=== PATIENT | female | born 1975 | race Caucasian/White ===

== ENCOUNTER 2017-07-26 18:58 | Emergency (ER) | payer BC ==
[~2017-07-26] VITALS: Ht 167.6 cm; Wt 93.0 kg
[~2017-07-26 18:58] MED LIST: CLX20 PO
[2017-07-26 19:09] VITALS: Ht 167.6 cm; Wt 93.0 kg
[2017-07-26] MEDS ORDERED: FENTANYL CITRATE INJ 50 MCG/1 ML 2 ML VIAL IV PRN (20:00)
[2017-07-26] MEDS ORDERED: KETOROLAC TROMETHAMINE 30 MG/ML VIAL IV STA (20:00)
[2017-07-26] MEDS ORDERED: SODIUM CHLORIDE 0.9% 1000ML 1,000 ML IV STA (20:00)
[2017-07-26] MEDS ORDERED: ONDANSETRON INJ 2 MG/ML 2 ML VIAL IV STA (20:00)
[2017-07-26 21:00] LABS: BASO % 0.2 %; BASO ABS # 0.03 K/uL (0-0.2); COMPLETE YES; EOS % 1.1 %; HEMATOCRIT 42.3 % (37-47); IG% 0.3 %; LYMPH % 16.9 %; MEAN CELL VOLUME 85.5 fL (80-100); MEAN CORPUSCULAR HEMOGLOBIN 27.5 pg (25-34); MEAN CORPUSCULAR HGB CONC 32.2 g/dl (32-36); MEAN PLATELET VOLUME 9.6 fL (7.4-10.4); MONO % 7.8 %; NEUT % 73.7 %; PLATELET COUNT 340 K/uL (130-400); RED BLOOD COUNT 4.95 M/uL (4.2-5.4); WHITE BLOOD COUNT 12.39 K/uL (4.8-10.8)
[2017-07-26] MEDS ORDERED: ROPI0.25 PO (21:08)
[2017-07-26] MEDS ORDERED: VORT1TAB3 PO (21:08)
[2017-07-26 21:11] LABS: URINE APPEARANCE TURBID (CLEAR); URINE BILIRUBIN NEG (NEG); URINE COLOR YELLOW; URINE EPITHELIAL CELL AUTO >30 /lpf (0-5); URINE NITRITE NEG (NEG); URINE PH 7.5 (4.5-7.5); URINE SPECIFIC GRAVITY 1.017 (1.000-1.030); UROBILINOGEN NEG (NEG); ZZUR CULT IF INDIC CLEAN CATCH NO
[2017-07-26 21:13] LABS: MANUAL MICROSCOPIC REQUIRED? NO; REVIEW REQ? NO
--- NOTE | 2017-07-26 21:16 | DIAGNOSTIC IMAGING REPORT ---
CHEST ONE VIEW PORTABLE CLINICAL HISTORY: Pain, radiating to the abdomen. COMPARISON STUDY: No previous studies for comparison. FINDINGS: The cardiac and mediastinal contours are normal. There is no evidence of focal pulmonary consolidation. There is no evidence of failure. No pleural effusions are visualized.[ No free intraperitoneal air is visualized. IMPRESSION: No active disease in the chest. Electronically signed by: Catracho Herrera M.D. 07/26/2017 9:14 PM Dictated Date/Time: 07/26/2017 9:14 PM
[2017-07-26 21:30] LABS: ALT/SGPT 20 U/L (12-78); BLOOD UREA NITROGEN 12 mg/dl (7-18); BUN/CREATININE RATIO 15.6 (10-20); CALCIUM 9.9 mg/dl (8.5-10.1); CARBON DIOXIDE 27 mmol/L (21-32); CHLORIDE 105 mmol/L (98-107); CREATININE 0.78 mg/dl (0.60-1.20); GLUCOSE 92 mg/dl (70-99); POTASSIUM 3.5 mmol/L (3.5-5.1); SODIUM 138 mmol/L (136-145)
--- NOTE | 2017-07-26 21:31 | DIAGNOSTIC IMAGING REPORT ---
BILIARY ULTRASOUND CLINICAL HISTORY: Abdominal pain COMPARISON STUDY: No previous studies for comparison. FINDINGS: The pancreas is nonvisualized. The liver demonstrates increased echogenicity, nonspecific finding most often seen in hepatic steatosis. There is a 3.5 cm nonmobile gallstone. There is no gallbladder wall thickening. There is trace sludge. There is no ductal dilatation. The common bile duct measures 3 mm. The technologist reports the patient was tender to gallbladder palpation. IMPRESSION: 1. Nondiagnostic evaluation the pancreas 2. Cholelithiasis. Minimal gallbladder sludge. No evidence of ductal dilatation. Electronically signed by: Catracho Herrera M.D. 07/26/2017 9:30 PM Dictated Date/Time: 07/26/2017 9:28 PM
[2017-07-26 21:33] LABS: ALKALINE PHOSPHATASE 99 U/L (45-117); AST/SGOT 13 U/L (15-37)
[2017-07-26] MEDS ORDERED: MoRPHine SULFATE 4 MG/ML 1 ML CARP\\VIAL IV STA (22:18)
--- NOTE | 2017-07-26 22:28 | EMERGENCY ROOM VISIT NOTE ---
History Report prepared by Livia: Roc Rocha Under the Supervision of: Dr. Salinas Cartagena D.O. First contact with patient: 19:50 Chief Complaint: ABDOMINAL PAIN Stated Complaint: ABDOMINAL/BACK PAIN Nursing Triage Summary: pt c/o severe abd pain History of Present Illness The patient is a 42 year old female who presents to the Emergency Room with complaints of worsening abdominal and back pain beginning today. The patient states that she began feeling a "tight bloating" feeling at around 1430 this afternoon. She notes that the pain is centralized to her upper middle abdominal region and middle back. She reports feeling symptoms of SOB and notes that she feels that vomiting might help her symptoms but is not feeling nauseous. She denies any CP. The patient states that she has no previous medical problems and has not experienced anything similar to her present symptoms. She notes that she takes medication for her depression and restless leg syndrome. She reports that her mother and sister have both had their gallbladders removed. Source of History: patient Onset: this morning Position: abdomen, back Quality: other ("tight bloating") Timing: worsening Associated Symptoms: No chest pain, No nausea Review of Systems See HPI for pertinent positives & negatives. A total of 10 systems reviewed and were otherwise negative. Past Medical & Surgical Medical Problems: (1) No chronic problems Family History FHx: cholecystectomy MOTHER, Onset:Unknown SISTER, Onset:Unknown Social History Smoking Status: Never Smoker Marital Status: Housing Status: lives with family Occupation Status: employed Current/Historical Medications Scheduled Ropinirole (Requip), 0.25 MG PO HS Vortioxetine HBr (Trintellix), 20 MG PO DAILY Allergies Coded Allergies: Amoxicillin (Verified Allergy, Unknown, Unknown, 07/26/17) Chlorpheniramine (Verified Allergy, Unknown, FROM CORICIDIN D, 11/11/09) Penicillins (Verified Allergy, Unknown, 11/11/09) Pseudoephedrine (Verified Allergy, Unknown, FROM CORICIDIN D, 11/11/09) Physical Exam Vital Signs Date Time Temp Pulse Resp B/P (MAP) Pulse Ox O2 Delivery O2 Flow Rate FiO2 07/26/17 20:33 86 18 134/89 94 Room Air 07/26/17 19:09 36.8 96 18 97 Room Air Physical Exam CONSTITUTIONAL/VITAL SIGNS: Reviewed / noted above. GENERAL: Non-toxic in appearance. INTEGUMENTARY: Warm, dry, and [place]. HEAD: Normocephalic. EYES: without scleral icterus or trauma. ENT/OROPHARYNX: clear and moist. LYMPHADENOPATHY/NECK: Is supple without lymphadenopathy or meningismus. RESPIRATORY: Lungs clear and equal. CARDIOVASCULAR: Regular rate and rhythm. GI/ABDOMEN: Soft. No organomegaly or pulsatile mass. No rebound or guarding. Normal bowel sounds. Tenderness in RUQ and epigastric area. EXTREMITIES: Warm and well perfused. BACK: No CVA tenderness. NEUROLOGICAL: Intact without focal deficits. PSYCHIATRIC: normal affect. MUSCULOSKELETAL: Normally developed with good muscle tone. Medical Decision & Procedures ER Provider Diagnostic Interpretation: Radiology results as stated below per my review and radiologist interpretation: CHEST ONE VIEW PORTABLE CLINICAL HISTORY: Pain, radiating to the abdomen. COMPARISON STUDY: No previous studies for comparison. FINDINGS: The cardiac and mediastinal contours are normal. There is no evidence of focal pulmonary consolidation. There is no evidence of failure. No pleural effusions are visualized.[ No free intraperitoneal air is visualized. IMPRESSION: No active disease in the chest. Electronically signed by: Catracho Herrera M.D. 07/26/2017 9:14 PM Dictated Date/Time: 07/26/2017 9:14 PM BILIARY ULTRASOUND CLINICAL HISTORY: Abdominal pain COMPARISON STUDY: No previous studies for comparison. FINDINGS: The pancreas is nonvisualized. The liver demonstrates increased echogenicity, nonspecific finding most often seen in hepatic steatosis. There is a 3.5 cm nonmobile gallstone. There is no gallbladder wall thickening. There is trace sludge. There is no ductal dilatation. The common bile duct measures 3 mm. The technologist reports the patient was tender to gallbladder palpation. IMPRESSION: 1. Nondiagnostic evaluation the pancreas 2. Cholelithiasis. Minimal gallbladder sludge. No evidence of ductal dilatation. Electronically signed by: Catracho Herrera M.D. 07/26/2017 9:30 PM Laboratory Results 07/26/17 20:26 Red Blood Count 4.95, Mean Corpuscular Volume 85.5, Mean Corpuscular Hemoglobin 27.5, Mean Corpuscular Hemoglobin Concent 32.2, Mean Platelet Volume 9.6, Neutrophils (%) (Auto) 73.7, Lymphocytes (%) (Auto) 16.9, Monocytes (%) (Auto) 7.8, Eosinophils (%) (Auto) 1.1, Basophils (%) (Auto) 0.2, Neutrophils # (Auto) 9.11, Lymphocytes # (Auto) 2.10, Monocytes # (Auto) 0.97, Eosinophils # (Auto) 0.14, Basophils # (Auto) 0.03 07/26/17 20:26 Test 07/26/17 20:26 White Blood Count 12.39 K/uL (4.8-10.8) Red Blood Count 4.95 M/uL (4.2-5.4) Hemoglobin 13.6 g/dL (12.0-16.0) Hematocrit 42.3 % (37-47) Mean Corpuscular Volume 85.5 fL (80-100) Mean Corpuscular Hemoglobin 27.5 pg (25-34) Mean Corpuscular Hemoglobin Concent 32.2 g/dl (32-36) Platelet Count 340 K/uL (130-400) Mean Platelet Volume 9.6 fL (7.4-10.4) Neutrophils (%) (Auto) 73.7 % Lymphocytes (%) (Auto) 16.9 % Monocytes (%) (Auto) 7.8 % Eosinophils (%) (Auto) 1.1 % Basophils (%) (Auto) 0.2 % Neutrophils # (Auto) 9.11 K/uL (1.4-6.5) Lymphocytes # (Auto) 2.10 K/uL (1.2-3.4) Monocytes # (Auto) 0.97 K/uL (0.11-0.59) Eosinophils # (Auto) 0.14 K/uL (0-0.5) Basophils # (Auto) 0.03 K/uL (0-0.2) RDW Standard Deviation 44.8 fL (36.4-46.3) RDW Coefficient of Variation 14.4 % (11.5-14.5) Immature Granulocyte % (Auto) 0.3 % Immature Granulocyte # (Auto) 0.04 K/uL (0.00-0.02) Urine Color YELLOW Urine Appearance TURBID (CLEAR) Urine pH 7.5 (4.5-7.5) Urine Specific [place] 1.017 (1.000-1.030) Urine Protein NEG (NEG) Urine Glucose (UA) NEG (NEG) Urine Ketones NEG (NEG) Urine Occult Blood 1+ (NEG) Urine Nitrite NEG (NEG) Urine Bilirubin NEG (NEG) Urine Urobilinogen NEG (NEG) Urine Leukocyte Esterase LARGE (NEG) Urine WBC (Auto) 5-10 /hpf (0-5) Urine RBC (Auto) 5-10 /hpf (0-4) Urine Hyaline Casts (Auto) 1-5 /lpf (0-5) Urine Epithelial Cells (Auto) >30 /lpf (0-5) Urine Bacteria (Auto) NEG (NEG) Urine Test NEG (NEG) Anion Gap 6.0 mmol/L (3-11) Est Creatinine Clear Calc Drug Dose 106.8 ml/min Estimated GFR () 107.9 Estimated GFR (Non- 93.1 BUN/Creatinine Ratio 15.6 (10-20) Calcium Level 9.9 mg/dl (8.5-10.1) Total Bilirubin 0.1 mg/dl (0.2-1) Direct Bilirubin < 0.1 mg/dl (0-0.2) Aspartate Amino Transf (AST/SGOT) 13 U/L (15-37) Alanine Aminotransferase (ALT/SGPT) 20 U/L (12-78) Alkaline Phosphatase 99 U/L (45-117) Total Protein 8.9 gm/dl (6.4-8.2) Albumin 4.4 gm/dl (3.4-5.0) Lipase 174 U/L (73-393) Laboratory results as stated above per my review. Medications Administered Medications (Trade) Dose Ordered Sig/[place] Route Start Time Stop Time Status Last Admin Dose Admin Sodium Chloride 1,000 ml @ 999 mls/hr Q1H1M STAT IV 07/26/17 20:00 07/26/17 21:00 DC 07/26/17 20:23 999 MLS/HR Ondansetron HCl (Zofran Inj) 4 mg NOW STAT IV 07/26/17 20:00 07/26/17 20:03 DC 07/26/17 20:22 4 MG Fentanyl Citrate (Fentanyl Inj) 100 mcg Q1H PRN IV 07/26/17 20:00 08/09/17 19:59 07/26/17 20:23 100 MCG Ketorolac Tromethamine (Toradol Inj) 30 mg NOW STAT IV 07/26/17 20:00 07/26/17 20:03 DC 07/26/17 20:23 30 MG ECG Rate (beats per minute): 75 Rhythm: normal sinus Findings: no ectopy, other (no acute injury) ED Course 1952: Previous medical records were reviewed. The patient was evaluated in room C12. A complete history and physical examination was performed. 1999: Toradol Inj 30mg IV, Zofran Inj 4mg IV, Sodium Chloride 1000 ml @ 999 mls/ hr IV 2199: I reevaluated and updated the patient. 2225: Morphine 4mg IV, Percocet home pack. 2232: On reevaluation, the patient is stable. I discussed the results and findings with the patient. She verbalized agreement of the treatment plan. The patient was discharged home. Medical Decision Differential considered: pancreatitis, hepatitis, or acute cholecystitis, AAA, UTI, pyelonephritis, kidney stones, appendicitis, diverticulitis, shingles, bowel obstruction mesenteric ischemia, intussusception,hernia, ovarian torsion, ruptured ovarian cyst,ectopic , . This is a 42-year-old female who presents to the ED with a chief complaint of right-sided abdominal pain and a bloating feeling. The patient states that her pain is in the epigastric area as well and radiates into her back. Her symptoms started around 2:30 PM today after eating a bowl of ice cream. The patient denied nausea but felt like if she could vomit it would make her feel better. The patient denied any chest pains or shortness of breath. She has not had any recent illness. She denies recent similar issues. Her physical exam revealed tenderness in the right upper quadrant greater than epigastric area. There was no CVA tenderness. The abdomen did not reveal any tenderness in the lower aspects of the abdomen. Ultrasound the gallbladder reveals cholelithiasis and a minimal amount of sludge. Chest x-ray did not show acute disease. EKG was normal sinus rhythm. White blood cell count was 12.4. Complete metabolic panel was unremarkable. Lipase was negative, test was negative. Urine shows contamination. The patient had treatment with IV fluids, IV Zofran, IV Toradol, IV fentanyl and IV morphine. The patient's symptoms did improve during her ED stay. She was discharged with a Percocet home pack. She was told that her symptoms are likely related to biliary colic and she was to avoid fatty foods. surgical referral provided. The patient will return if her symptoms worsen or recur. Blood Pressure Screening Patient's blood pressure: Normal blood pressure Blood pressure disposition: Did not require urgent referral Impression Primary Impression: Biliary colic Scribe Attestation The scribe's documentation has been prepared under my direction and personally reviewed by me in its entirety. I confirm that the note above accurately reflects all work, treatment, procedures, and medical decision making performed by me. Departure Information Dispostion Home / Self-Care Referrals No Doctor, Assigned (PCP) Erik Cox M.D. Patient Instructions ED Gallstone W Biliary Colic, My [facility] Additional Instructions Avoid fatty foods. Take 1 Percocet every 6 hours as needed for discomfort. Return to the emergency department for significant worsening or new symptoms. Follow-up with surgeon. Dr. Cox from [facility] surgery listed. Call Saturday for appointment.
[2017-07-26] MEDS ORDERED: PERCOCET HOME PACK PO ONE (22:30)
[2017-07-26 23:04] VITALS: BP 141/85; PULSE 77; TEMP 36.8; O2SAT 96
== END 2017-07-26 23:06 | disposition home or self-care (01) ==
LOC: C.EDB 19:00 → C.EDC 23:06
DX: K80.50 Calculus of bile duct without cholangitis or cholecystitis without obstruction (principal); F32.9 Major depressive disorder, single episode, unspecified; G25.81 Restless legs syndrome

== ENCOUNTER 2018-02-28 16:58 | Inpatient (IN) | payer BC, OTHER ==
[~2018-02-28] VITALS: Ht 167.6 cm; Wt 90.5 kg
[~2018-02-28 16:58] MED LIST changes: -CLX20 PO; +ROPI0.25 PO; +VORT1TAB3 PO
[2018-02-28] MEDS ORDERED: SODIUM CHLORIDE 0.9% 1000ML 1,000 ML IV STA (17:09)
[2018-02-28] MEDS ORDERED: KETOROLAC TROMETHAMINE 30 MG/ML VIAL IV STA (17:09)
[2018-02-28] MEDS ORDERED: ONDANSETRON INJ 2 MG/ML 2 ML VIAL IV STA (17:09)
[2018-02-28] MEDS ORDERED: MoRPHine SULFATE 4 MG/ML 1 ML CARP\\VIAL IV STA (17:09)
[2018-02-28 17:53] LABS: BASO % 0.2 %; BASO ABS # 0.02 K/uL (0-0.2); EOS % 0.5 %; EOS ABS # 0.06 K/uL (0-0.5); HEMATOCRIT 39.3 % (37-47); HEMOGLOBIN 12.9 g/dL (12.0-16.0); IG# 0.03 K/uL (0.00-0.02); LYMPH % 13.2 %; LYMPH ABS # 1.65 K/uL (1.2-3.4); MEAN CELL VOLUME 83.6 fL (80-100); MEAN CORPUSCULAR HEMOGLOBIN 27.4 pg (25-34); MEAN CORPUSCULAR HGB CONC 32.8 g/dl (32-36); MEAN PLATELET VOLUME 9.3 fL (7.4-10.4); MONO % 6.7 %; MONO ABS # 0.84 K/uL (0.11-0.59); NEUT % 79.2 %; NEUT ABS # 9.93 K/uL (1.4-6.5); PLATELET COUNT 334 K/uL (130-400); RED CELL DISTRIBUTION WIDTH CV 14.6 % (11.5-14.5); RED CELL DISTRIBUTION WIDTH SD 44.9 fL (36.4-46.3); WHITE BLOOD COUNT 12.53 K/uL (4.8-10.8)
[2018-02-28 18:06] LABS: PTT PATIENT 25.4 SECONDS (21.0-31.0)
[2018-02-28 18:09] LABS: ALBUMIN 3.9 gm/dl (3.4-5.0); CALCIUM 9.1 mg/dl (8.5-10.1); CREATININE 1.03 mg/dl (0.60-1.20); POTASSIUM 3.5 mmol/L (3.5-5.1); TOTAL PROTEIN 8.6 gm/dl (6.4-8.2)
--- NOTE | 2018-02-28 18:34 | DIAGNOSTIC IMAGING REPORT ---
CT OF THE ABDOMEN AND PELVIS WITHOUT CONTRAST, STONE PROTOCOL CLINICAL HISTORY: Right flank pain and vomiting. COMPARISON STUDY: Right upper quadrant ultrasound July 26, 2017. TECHNIQUE: Helical axial images of the abdomen and pelvis were obtained without IV or oral contrast according to renal stone protocol. A dose lowering technique was utilized adhering to the principles of ALARA. FINDINGS: There is mild right hydronephrosis due to a 6 mm x 5 mm proximal right ureteral catheter calculus. Numerous small bilateral intrarenal calculi that measure up to 4 mm. There may be fatty infiltration of the liver. There is no biliary ductal dilatation status post cholecystectomy. Evaluation of the abdomen and pelvis is suboptimal on this unenhanced exam. The spleen, adrenal glands and pancreas are unremarkable. Caliber and wall thickness of small and large bowel are normal. The appendix is normal. There is no lymphadenopathy. There are no suspicious osseous lesions. IMPRESSION: 1. 6 mm x 5 mm proximal right ureteral calculus which results in mild right hydronephrosis. 2. Bilateral nephrolithiasis. Electronically signed by: Mykel Monge M.D. 02/28/2018 6:33 PM Dictated Date/Time: 02/28/2018 6:19 PM
[2018-02-28] MEDS ORDERED: ALUMINUM/MAGNESIUM/SIMETH (MAALOX MAX) 30 ML UDC PO PRN (19:45)
[2018-02-28] MEDS ORDERED: MAGNESIUM HYDROXIDE SUSP 30 ML UDC PO PRN (19:45)
[2018-02-28] MEDS ORDERED: ONDANSETRON INJ 2 MG/ML 2 ML VIAL IV PRN (19:45)
[2018-02-28] MEDS ORDERED: ACETAMINOPHEN 325 MG TAB PO PRN (19:45)
--- NOTE | 2018-02-28 20:04 | EMERGENCY ROOM VISIT NOTE ---
History First contact with patient: 17:04 Chief Complaint: FLANK PAIN Stated Complaint: ABDOMINAL/BACK PAIN, VOMITING History of Present Illness The patient is a 42 year old female who presents to the Emergency Room via private vehicle accompanied by male with complaints of "abdominal/back pain, vomiting". The patient states that around 5:00 yesterday she had an upset stomach, pointing to the diffuse lower quadrant region and thought that it was because it was hot outside and she was out for a prolonged period of time. She states that she went home and vomited 1. She states that she then began with right flank pain and now points to a localized region in the right flank as a location of pain that she rates as a 9/10. She has a chills and feels clammy. She has tried ice and heat without relief. She notes minimal diarrhea. She notes that when she eats the pain is worse. Review of Systems A complete 10-point Review of Systems was discussed with the patient, with pertinent positives and negatives listed in the History of Present Illness. All remaining Review of Systems questions can be considered negative unless otherwise specified. Past Medical/Surgical History Medical Problems: (1) Hydronephrosis (2) Kidney stone on right side (3) No chronic problems (4) UTI (urinary tract infection) Family History FHx: cholecystectomy MOTHER, Onset:Unknown SISTER, Onset:Unknown Social History Smoking Status: Former Smoker Marital Status: Housing Status: lives with family Occupation Status: employed Current/Historical Medications Scheduled Ropinirole (Requip), 0.25 MG PO HS Vortioxetine HBr (Trintellix), 20 MG PO QPM Physical Exam Vital Signs Date Time Temp Pulse Resp B/P (MAP) Pulse Ox O2 Delivery O2 Flow Rate FiO2 02/28/18 19:00 83 18 130/80 99 Room Air 02/28/18 18:00 89 16 131/85 96 Room Air 02/28/18 17:01 36.7 89 20 162/103 99 Room Air Physical Exam VITAL SIGNS - Vital signs and nursing notes were reviewed. Stable. Hypertensive. Afebrile. GENERAL -42-year-old female appearing her stated age who is in no acute distress. Communicates well with provider and answers questions appropriately. SKIN - Without rashes. No meningeal or petechial rash. HEAD - NC/AT. EYES - Sclera anicteric. EARS - No deformities of external structures noted on gross examination bilaterally. NOSE - Midline and without cyanosis. No epistaxis or purulent drainage noted. MOUTH/OROPHARYNX - Without perioral cyanosis. LUNGS - Chest wall symmetric without accessory muscle use, intercostals retractions, or central cyanosis. Normal vesicular breath sounds CTA B/L. No wheezes, rales, or rhonchi appreciated. CARDIAC - RRR with S1/S2. No murmur, rubs, or gallops appreciated. ABDOMEN - Abdominal contour normal without pulsations or visible masses. BS normoactive all four quadrants. No tenderness, palpable masses, hepatosplenomegaly, or ascites noted. Right CVA tenderness noted. EXTREMITIES - No clubbing or peripheral cyanosis. Medical Decision & Procedures ER Provider Diagnostic Interpretation: CT OF THE ABDOMEN AND PELVIS WITHOUT CONTRAST, STONE PROTOCOL CLINICAL HISTORY: Right flank pain and vomiting. COMPARISON STUDY: Right upper quadrant ultrasound July 26, 2017. TECHNIQUE: Helical axial images of the abdomen and pelvis were obtained without IV or oral contrast according to renal stone protocol. A dose lowering technique was utilized adhering to the principles of ALARA. FINDINGS: There is mild right hydronephrosis due to a 6 mm x 5 mm proximal right ureteral catheter calculus. Numerous small bilateral intrarenal calculi that measure up to 4 mm. There may be fatty infiltration of the liver. There is no biliary ductal dilatation status post cholecystectomy. Evaluation of the abdomen and pelvis is suboptimal on this unenhanced exam. The spleen, adrenal glands and pancreas are unremarkable. Caliber and wall thickness of small and large bowel are normal. The appendix is normal. There is no lymphadenopathy. There are no suspicious osseous lesions. IMPRESSION: 1. 6 mm x 5 mm proximal right ureteral calculus which results in mild right hydronephrosis. 2. Bilateral nephrolithiasis. Electronically signed by: Mykel Monge M.D. 02/28/2018 6:33 PM Dictated Date/Time: 02/28/2018 6:19 PM Laboratory Results 02/28/18 17:35 Red Blood Count 4.70, Mean Corpuscular Volume 83.6, Mean Corpuscular Hemoglobin 27.4, Mean Corpuscular Hemoglobin Concent 32.8, Mean Platelet Volume 9.3, Neutrophils (%) (Auto) 79.2, Lymphocytes (%) (Auto) 13.2, Monocytes (%) (Auto) 6.7, Eosinophils (%) (Auto) 0.5, Basophils (%) (Auto) 0.2, Neutrophils # (Auto) 9.93, Lymphocytes # (Auto) 1.65, Monocytes # (Auto) 0.84, Eosinophils # (Auto) 0.06, Basophils # (Auto) 0.02 02/28/18 17:35 Test 02/28/18 17:15 02/28/18 17:35 Urine Color [place]K YELLOW Urine Appearance CLOUDY (CLEAR) Urine pH 5.0 (4.5-7.5) Urine Specific [place] 1.026 (1.000-1.030) Urine Protein 1+ (NEG) Urine Glucose (UA) NEG (NEG) Urine Ketones TRACE (NEG) Urine Occult Blood 3+ (NEG) Urine Nitrite NEG (NEG) Urine Bilirubin NEG (NEG) Urine Urobilinogen NEG (NEG) Urine Leukocyte Esterase SMALL (NEG) Urine WBC (Auto) 10-30 /hpf (0-5) Urine RBC (Auto) >30 /hpf (0-4) Urine Hyaline Casts (Auto) 5-10 /lpf (0-5) Urine Epithelial Cells (Auto) 20-30 /lpf (0-5) Urine Bacteria (Auto) NEG (NEG) Urine Crystals CALCIUM OXALATE (NONE Urine Test NEG (NEG) White Blood Count 12.53 K/uL (4.8-10.8) Red Blood Count 4.70 M/uL (4.2-5.4) Hemoglobin 12.9 g/dL (12.0-16.0) Hematocrit 39.3 % (37-47) Mean Corpuscular Volume 83.6 fL (80-100) Mean Corpuscular Hemoglobin 27.4 pg (25-34) Mean Corpuscular Hemoglobin Concent 32.8 g/dl (32-36) Platelet Count 334 K/uL (130-400) Mean Platelet Volume 9.3 fL (7.4-10.4) Neutrophils (%) (Auto) 79.2 % Lymphocytes (%) (Auto) 13.2 % Monocytes (%) (Auto) 6.7 % Eosinophils (%) (Auto) 0.5 % Basophils (%) (Auto) 0.2 % Neutrophils # (Auto) 9.93 K/uL (1.4-6.5) Lymphocytes # (Auto) 1.65 K/uL (1.2-3.4) Monocytes # (Auto) 0.84 K/uL (0.11-0.59) Eosinophils # (Auto) 0.06 K/uL (0-0.5) Basophils # (Auto) 0.02 K/uL (0-0.2) RDW Standard Deviation 44.9 fL (36.4-46.3) RDW Coefficient of Variation 14.6 % (11.5-14.5) Immature Granulocyte % (Auto) 0.2 % Immature Granulocyte # (Auto) 0.03 K/uL (0.00-0.02) Prothrombin Time 10.0 SECONDS (9.0-12.0) Prothromb Time International Ratio 1.0 (0.9-1.1) Activated Partial Thromboplast Time 25.4 SECONDS (21.0-31.0) Partial Thromboplastin Ratio 1.0 Anion Gap 6.0 mmol/L (3-11) Est Creatinine Clear Calc Drug Dose 79.8 ml/min Estimated GFR () 77.1 Estimated GFR (Non- 66.5 BUN/Creatinine Ratio 14.3 (10-20) Calcium Level 9.1 mg/dl (8.5-10.1) Total Bilirubin 0.3 mg/dl (0.2-1) Aspartate Amino Transf (AST/SGOT) 17 U/L (15-37) Alanine Aminotransferase (ALT/SGPT) 23 U/L (12-78) Alkaline Phosphatase 99 U/L (45-117) Total Protein 8.6 gm/dl (6.4-8.2) Albumin 3.9 gm/dl (3.4-5.0) Globulin 4.7 gm/dl (2.5-4.0) Albumin/Globulin Ratio 0.8 (0.9-2) Lipase 111 U/L (73-393) Medications Administered Medications (Trade) Dose Ordered Sig/[place] Route Start Time Stop Time Status Last Admin Dose Admin Sodium Chloride 1,000 ml @ 999 mls/hr Q1H1M STAT IV 02/28/18 17:09 02/28/18 18:09 DC 02/28/18 17:57 999 MLS/HR Ketorolac Tromethamine (Toradol Inj) 30 mg NOW STAT IV 02/28/18 17:09 02/28/18 17:11 DC 02/28/18 17:56 30 MG Ondansetron HCl (Zofran Inj) 4 mg NOW STAT IV 02/28/18 17:09 02/28/18 17:11 DC 02/28/18 17:56 4 MG Morphine Sulfate (MoRPHine SULFATE INJ) 4 mg NOW STAT IV 02/28/18 17:09 02/28/18 17:11 DC 02/28/18 17:57 4 MG Medical Decision Patient was seen and evaluated as above in room C4. Review was performed of nursing notes and vital signs. After obtaining a thorough history and physical examination the above work up was performed. She presents to us today with right flank pain. Clinically I am concerned about a ureteral stone. She appears to be in a great deal of pain upon my examination. I recommended CT scan of the abdomen and pelvis without contrast for stone. This reveals a 6 x 5 mm proximal right ureteral calculus. CBC reveals leukocytosis of 12.53. No concerning anemia. Coags normal. Metabolic panel reveals no evidence of kidney or liver failure. Urinalysis appears contaminated by epithelial cells, with only a small amount of leukocytes, negative bacteria and no nitrites. UPT negative. While here she was given fluids, Toradol and morphine. She was also given Zofran for nausea. I believe that further evaluation the inpatient setting is warranted secondary to her amount of pain, the patient is in agreement. With the pain that she was given above she was feeling much better. I discussed this with the hospitalist as well as Dr. Greg Koch of urology. She is to be n.p.o. after midnight. Please refer to for the documentation regarding her stay. In the evaluation and treatment of this patient the following differential diagnoses were entertained: Renal calculi, sepsis, UTI, gastritis, acute cholecystitis, appendicitis, ovarian torsion, gastroenteritis, among others. Impression Primary Impression: Right flank pain Additional Impressions: Right ureteral calculus Hydronephrosis Departure Information Referrals Paulino Goss M.D.([facility]) (PCP) Patient Instructions My [facility] Problem Qualifiers
[2018-02-28] MEDS: MoRPHine SULFATE 4 MG/ML 1 ML CARP\\VIAL IV PRN (20:42)
[2018-02-28 21:00] VITALS: BP 134/88; PULSE 76; TEMP 36.6; O2SAT 96; Ht 167.6 cm; Wt 90.5 kg
[2018-02-28] MEDS ORDERED: ROPINIROLE HCL 0.25 MG TAB PO SCH (21:00)
--- NOTE | 2018-02-28 21:07 | History and Physical ---
History & Physical Date & Time of Service: February 28, 2018 at 20:58 Chief Complaint: Abdominal/Back Pain, Vomiting Primary Care Physician: Paulino Goss M.D.(KAI) History of Present Illness Source: patient, family, clinic records This is a 42 year old female with a past medical history of depression, previous history of hyperparathyroidism s/p partial parathyroid resection - presents with R flank pain, nausea/vomiting, chills. States she's had this for a few days now; initially though it was the "stomach flu", but her R flank pain worsened and so she presented to the ER. Had an abdominal CT done, showing a 6mm by 5mm renal stone with R hydronephrosis. She received Zofran and Morphine with good response to pain. Feeling better now after receiving medications. Past Medical/Surgical History Medical Problems: (1) Biliary colic (2) Hydronephrosis (3) Kidney stone on right side (4) No chronic problems (5) UTI (urinary tract infection) Family History FHx: cholecystectomy MOTHER, Onset:Unknown SISTER, Onset:Unknown Social History Smoking Status: Former Smoker Marital Status: Occupational Status: employed Immunizations History of Influenza Vaccine: Unknown History of Tetanus Vaccine?: Unknown History of Pneumococcal: Unknown History of Hepatitis B Vaccine: Unknown Allergies Coded Allergies: Amoxicillin (Verified Allergy, Intermediate, rash, 02/28/18) Chlorpheniramine (Verified Allergy, Intermediate, rash, 02/28/18) Penicillins (Verified Allergy, Intermediate, rash, 02/28/18) Pseudoephedrine (Verified Allergy, Intermediate, rash, 02/28/18) Home Medications Scheduled Ropinirole (Requip), 0.25 MG PO HS Vortioxetine HBr (Trintellix), 20 MG PO QPM Review of Systems Constitutional: + fever, + chills, No weakness, No fatigue Eyes: No worsening of vision ENT: No hearing loss Respiratory: No cough, No sputum, No wheezing, No shortness of breath, No dyspnea on exertion, No dyspnea at rest, No hemoptysis Cardiovascular: No chest pain, No edema, No palpitations Abdomen: + pain, + nausea, + vomiting, No diarrhea, No constipation, No GI bleeding Musculoskeletal: No joint pain, No muscle pain Genitourinary - Female: No dysuria, No urinary frequency, No urinary urgency, No urinary incontinence, No urinary retention, No hematuria Psychiatric: No depression symptoms, No anxiety, No insomnia Endocrine: No fatigue Hematologic / Lymphatic: No abnormal bleeding/bruising Integumentary: No rash Allergic / Immunologic: No environmental allergies, No seasonal allergies Physical Exam Vital Signs Date Time Temp Pulse Resp B/P (MAP) Pulse Ox O2 Delivery O2 Flow Rate FiO2 02/28/18 19:00 83 18 130/80 99 Room Air 02/28/18 18:00 89 16 131/85 96 Room Air 02/28/18 17:01 36.7 89 20 162/103 99 Room Air General Appearance: no apparent distress Head: normocephalic, atraumatic Eyes: normal inspection ENT: hearing grossly normal Neck: supple Respiratory/Chest: lungs clear, normal breath sounds, no respiratory distress, no accessory muscle use Cardiovascular: regular rate, rhythm, no edema, no murmur Abdomen/GI: soft, + pertinent finding (+R flank pain, suprapubic tenderness) Extremities/Musculoskelatal: normal inspection, no calf tenderness, normal capillary refill, no pedal edema, normal range of motion Neurologic/Psych: loader technician II-XII nml as tested, no motor/sensory deficits, alert, normal mood/affect, oriented x 3 Skin: normal color Lymphatic: no adenopathy Diagnostics Laboratory Results Results Past 24 Hours Test 02/28/18 17:15 02/28/18 17:35 Range/Units Urine Color DK YELLOW Urine Appearance CLOUDY CLEAR Urine pH 5.0 4.5-7.5 Urine Specific [place] 1.026 1.000-1.030 Urine Protein 1+ NEG Urine Glucose (UA) NEG NEG Urine Ketones TRACE NEG Urine Occult Blood 3+ NEG Urine Nitrite NEG NEG Urine Bilirubin NEG NEG Urine Urobilinogen NEG NEG Urine Leukocyte Esterase SMALL NEG Urine WBC (Auto) 10-30 0-5 /hpf Urine RBC (Auto) >30 0-4 /hpf Urine Hyaline Casts (Auto) 5-10 0-5 /lpf Urine Epithelial Cells (Auto) 20-30 0-5 /lpf Urine Bacteria (Auto) NEG NEG Urine Crystals CALCIUM OXALATE NONE PRSENT Urine Test NEG NEG White Blood Count 12.53 4.8-10.8 K/uL Red Blood Count 4.70 4.2-5.4 M/uL Hemoglobin 12.9 12.0-16.0 g/dL Hematocrit 39.3 37-47 % Mean Corpuscular Volume 83.6 80-100 fL Mean Corpuscular Hemoglobin 27.4 25-34 pg Mean Corpuscular Hemoglobin Concent 32.8 32-36 g/dl Platelet Count 334 130-400 K/uL Mean Platelet Volume 9.3 7.4-10.4 fL Neutrophils (%) (Auto) 79.2 % Lymphocytes (%) (Auto) 13.2 % Monocytes (%) (Auto) 6.7 % Eosinophils (%) (Auto) 0.5 % Basophils (%) (Auto) 0.2 % Neutrophils # (Auto) 9.93 1.4-6.5 K/uL Lymphocytes # (Auto) 1.65 1.2-3.4 K/uL Monocytes # (Auto) 0.84 0.11-0.59 K/uL Eosinophils # (Auto) 0.06 0-0.5 K/uL Basophils # (Auto) 0.02 0-0.2 K/uL RDW Standard Deviation 44.9 36.4-46.3 fL RDW Coefficient of Variation 14.6 11.5-14.5 % Immature Granulocyte % (Auto) 0.2 % Immature Granulocyte # (Auto) 0.03 0.00-0.02 K/uL Prothrombin Time 10.0 9.0-12.0 SECONDS Prothromb Time International Ratio 1.0 0.9-1.1 Activated Partial Thromboplast Time 25.4 21.0-31.0 SECONDS Partial Thromboplastin Ratio 1.0 Sodium Level 140 136-145 mmol/L Potassium Level 3.5 3.5-5.1 mmol/L Chloride Level 108 98-107 mmol/L Carbon Dioxide Level 26 21-32 mmol/L Anion Gap 6.0 3-11 mmol/L Blood Urea Nitrogen 15 7-18 mg/dl Creatinine 1.03 0.60-1.20 mg/dl Est Creatinine Clear Calc Drug Dose 79.8 ml/min Estimated GFR () 77.1 Estimated GFR (Non- 66.5 BUN/Creatinine Ratio 14.3 10-20 Random Glucose 113 70-99 mg/dl Calcium Level 9.1 8.5-10.1 mg/dl Total Bilirubin 0.3 0.2-1 mg/dl Aspartate Amino Transf (AST/SGOT) 17 15-37 U/L Alanine Aminotransferase (ALT/SGPT) 23 12-78 U/L Alkaline Phosphatase 99 45-117 U/L Total Protein 8.6 6.4-8.2 gm/dl Albumin 3.9 3.4-5.0 gm/dl Globulin 4.7 2.5-4.0 gm/dl Albumin/Globulin Ratio 0.8 0.9-2 Lipase 111 73-393 U/L Microbiology Results 02/28/18 Urine Culture, Received Pending Diagnostic Radiology CT OF THE ABDOMEN AND PELVIS WITHOUT CONTRAST, STONE PROTOCOL CLINICAL HISTORY: Right flank pain and vomiting. COMPARISON STUDY: Right upper quadrant ultrasound July 26, 2017. TECHNIQUE: Helical axial images of the abdomen and pelvis were obtained without IV or oral contrast according to renal stone protocol. A dose lowering technique was utilized adhering to the principles of ALARA. FINDINGS: There is mild right hydronephrosis due to a 6 mm x 5 mm proximal right ureteral catheter calculus. Numerous small bilateral intrarenal calculi that measure up to 4 mm. There may be fatty infiltration of the liver. There is no biliary ductal dilatation status post cholecystectomy. Evaluation of the abdomen and pelvis is suboptimal on this unenhanced exam. The spleen, adrenal glands and pancreas are unremarkable. Caliber and wall thickness of small and large bowel are normal. The appendix is normal. There is no lymphadenopathy. There are no suspicious osseous lesions. IMPRESSION: 1. 6 mm x 5 mm proximal right ureteral calculus which results in mild right hydronephrosis. 2. Bilateral nephrolithiasis. Impression Assessment and Plan This is a 42 year old female with a past medical history of depression, previous history of hyperparathyroidism s/p partial parathyroid resection - presents with R flank pain, nausea/vomiting, chills. R Ureteral Calculus with Hydronephrosis Urinary Tract Infection - patient with R sided kidney stone - will give IVFs, strain urine, morphine PRN, Zofran PRN - NPO after midnight - urology consulted - IV Cipro ordered due to elevated white count and dirty UA with urine culture pending Depression - continue Trintellix at night FULL CODE Resuscitation Status VTE Prophylaxis Will order VTE Prophylaxis: No Reason for no VTE drug order: Treatment not indicated Reason no Mechanical VTE Order: Treatment not indicated
[2018-02-28] MEDS: CIPROFLOXACIN / D5W 400 MG in PREMIXED IN D5W 200 ML IV SCH (21:53)
[2018-02-28] MEDS: NSS + 20MEQ KCL 1000ML 1,000 ML IV SCH (21:53)
[2018-02-28] MEDS ORDERED: TRINTELLIX PO SCH (22:00)
[2018-02-28 23:05] VITALS: BP 118/74; PULSE 65; TEMP 36.8; O2SAT 96
[2018-03-01] MEDS ORDERED: TRINTELLIX: ORDER AWAITING ACTION SCH
[2018-03-01] MEDS: MoRPHine SULFATE 4 MG/ML 1 ML CARP\\VIAL IV PRN (02:39)
[2018-03-01] MEDS: NSS + 20MEQ KCL 1000ML 1,000 ML IV SCH (06:38)
[2018-03-01 06:59] LABS: HEMATOCRIT 36.8 % (37-47); HEMOGLOBIN 11.8 g/dL (12.0-16.0); MEAN CORPUSCULAR HEMOGLOBIN 27.3 pg (25-34); MEAN CORPUSCULAR HGB CONC 32.1 g/dl (32-36); MEAN PLATELET VOLUME 9.1 fL (7.4-10.4); PLATELET COUNT 268 K/uL (130-400); RED CELL DISTRIBUTION WIDTH SD 46.8 fL (36.4-46.3); WHITE BLOOD COUNT 8.18 K/uL (4.8-10.8)
[2018-03-01 07:34] LABS: CALCIUM 8.2 mg/dl (8.5-10.1); CREATININE 0.78 mg/dl (0.60-1.20); POTASSIUM 3.6 mmol/L (3.5-5.1)
--- NOTE | 2018-03-01 08:02 | Urology Consultation ---
History General Date of Service: March 01, 2018. Chief Complaint: Right-sided flank pain and 6 mm kidney stone Primary Care Physician: Paulino Goss M.D.(KAI) Pt seen a urologist before?: No History of Present Illness Patient is a pleasant 42-year-old female who was admitted last night due to new onset of colicky right-sided flank pain. She reports history of kidney stone 20 years ago which he passed spontaneously. She has not been evaluated by the urology service before. She reports she currently continues to have waves of pain and nausea which are controlled with intravenous medication. She has passed no stones and feels that her pain has not moved significantly. CT scan imaging studies and lab work are reviewed. She denies fevers, chills at home. HPI - Stones Size: 6 mm Location: right, ureter Pain: right flank, intermittent Patient has: + hydronephrosis, No emesis, No fever Imaging Imaging: CT Laboratory Last 24 Hours Test 02/28/18 17:15 02/28/18 17:35 03/01/18 06:29 Urine Color DK YELLOW Urine Appearance CLOUDY Urine pH 5.0 Urine Specific [place] 1.026 Urine Protein 1+ Urine Glucose (UA) NEG Urine Ketones TRACE Urine Occult Blood 3+ Urine Nitrite NEG Urine Bilirubin NEG Urine Urobilinogen NEG Urine Leukocyte Esterase SMALL Urine WBC (Auto) 10-30 /hpf Urine RBC (Auto) >30 /hpf Urine Hyaline Casts (Auto) 5-10 /lpf Urine Epithelial Cells (Auto) 20-30 /lpf Urine Bacteria (Auto) NEG Urine Crystals CALCIUM OXALATE Urine Test NEG White Blood Count 12.53 K/uL 8.18 K/uL Red Blood Count 4.70 M/uL 4.33 M/uL Hemoglobin 12.9 g/dL 11.8 g/dL Hematocrit 39.3 % 36.8 % Mean Corpuscular Volume 83.6 fL 85.0 fL Mean Corpuscular Hemoglobin 27.4 pg 27.3 pg Mean Corpuscular Hemoglobin Concent 32.8 g/dl 32.1 g/dl Platelet Count 334 K/uL 268 K/uL Mean Platelet Volume 9.3 fL 9.1 fL Neutrophils (%) (Auto) 79.2 % Lymphocytes (%) (Auto) 13.2 % Monocytes (%) (Auto) 6.7 % Eosinophils (%) (Auto) 0.5 % Basophils (%) (Auto) 0.2 % Neutrophils # (Auto) 9.93 K/uL Lymphocytes # (Auto) 1.65 K/uL Monocytes # (Auto) 0.84 K/uL Eosinophils # (Auto) 0.06 K/uL Basophils # (Auto) 0.02 K/uL RDW Standard Deviation 44.9 fL 46.8 fL RDW Coefficient of Variation 14.6 % 15.0 % Immature Granulocyte % (Auto) 0.2 % Immature Granulocyte # (Auto) 0.03 K/uL Prothrombin Time 10.0 SECONDS Prothromb Time International Ratio 1.0 Activated Partial Thromboplast Time 25.4 SECONDS Partial Thromboplastin Ratio 1.0 Sodium Level 140 mmol/L 142 mmol/L Potassium Level 3.5 mmol/L 3.6 mmol/L Chloride Level 108 mmol/L 112 mmol/L Carbon Dioxide Level 26 mmol/L 25 mmol/L Anion Gap 6.0 mmol/L 5.0 mmol/L Blood Urea Nitrogen 15 mg/dl 14 mg/dl Creatinine 1.03 mg/dl 0.78 mg/dl Est Creatinine Clear Calc Drug Dose 79.8 ml/min 105.3 ml/min Estimated GFR () 77.1 107.9 Estimated GFR (Non- 66.5 93.1 BUN/Creatinine Ratio 14.3 17.3 Random Glucose 113 mg/dl 78 mg/dl Calcium Level 9.1 mg/dl 8.2 mg/dl Total Bilirubin 0.3 mg/dl Aspartate Amino Transf (AST/SGOT) 17 U/L Alanine Aminotransferase (ALT/SGPT) 23 U/L Alkaline Phosphatase 99 U/L Total Protein 8.6 gm/dl Albumin 3.9 gm/dl Globulin 4.7 gm/dl Albumin/Globulin Ratio 0.8 Lipase 111 U/L Problem List Medical Problems: (1) Biliary colic Status: Acute (2) Right flank pain Status: Acute (3) Right ureteral calculus Status: Acute Past History depression, kidney stones Past Surgical History: cholecystectomy Family History FHx: cholecystectomy MOTHER, Onset:Unknown SISTER, Onset:Unknown Social History Hx Tobacco Use In Past Year?: No Smoking: quit greater than 1 year Alcohol: no current use Marital status: Occupation status: employed Immunizations History of Influenza Vaccine: Unknown History of Tetanus Vaccine?: Unknown History of Pneumococcal: Unknown History of Hepatitis B Vaccine: Unknown History of MDRO No Allergies Coded Allergies: Amoxicillin (Verified Allergy, Intermediate, rash, 02/28/18) Chlorpheniramine (Verified Allergy, Intermediate, rash, 02/28/18) Penicillins (Verified Allergy, Intermediate, rash, 02/28/18) Pseudoephedrine (Verified Allergy, Intermediate, rash, 02/28/18) Medications Home Medications: Home Meds and Scripts Medications Dose Route/Sig Max Daily Dose Days Date Category Requip (Ropinirole HCl) 0.25 Mg Tab 0.25 Mg PO HS 07/26/17 Reported Trintellix (Vortioxetine HBr) 20 Mg Tab 20 Mg PO QPM 07/26/17 Reported Inpatient Medications: Current Inpatient Medications Medications (Trade) Dose Ordered Sig/[place] Route Start Time Stop Time Status Last Admin Dose Admin Acetaminophen (Tylenol Tab) 650 mg Q4H PRN PO 02/28/18 19:45 03/30/18 19:44 Al Hydrox/Mg Hydrox/Simethicone (Maalox Max Susp) 15 ml Q4H PRN PO 02/28/18 19:45 03/30/18 19:44 Magnesium Hydroxide (Milk Of Magnesia Susp) 30 ml Q6H PRN PO 02/28/18 19:45 03/30/18 19:44 Ondansetron HCl (Zofran Inj) 4 mg Q6H PRN IV 02/28/18 19:45 03/30/18 19:44 Ciprofloxacin/ Dextrose 400 mg/ Prmx 200 ml @ 100 mls/hr Q12 IV 02/28/18 21:30 03/10/18 21:29 02/28/18 21:53 100 MLS/HR Potassium Chloride/Sodium Chloride 1,000 ml @ 150 mls/hr Q6H40M IV 02/28/18 21:30 03/30/18 21:29 03/01/18 06:38 150 MLS/HR Morphine Sulfate (MoRPHine SULFATE INJ) 2 mg Q4 PRN IV 02/28/18 19:45 03/14/18 19:44 03/01/18 02:39 2 MG Non-Formulary Medication (Non-Formulary Patient'S Own Med) 1 ea QPM PO 02/28/18 22:00 03/30/18 21:59 02/28/18 22:17 1 EA Review of Systems Review of Systems Constitutional: No fever, No chills Eyes: No double vision, No eye pain Neurological: No passing out, No numbness/tingling Endocrine: No excessive thirst Gastrointestinal: + abdominal pain, No vomiting Cardiovascular: No angina Respiratory: No wheezing, No coughing up blood Skin: No boils Musculoskeletal: + back pain Blood / Lymphatic: No bruise easily, No swollen glands Ears / Nose / Throat: No sinus, No hoarse voice Psychologic / Mental: No trouble remembering Female : + see HPI, + kidney stones Physical Exam Vital Signs: Vital Signs Past 12 Hours Date Time Temp Pulse Resp B/P (MAP) Pulse Ox O2 Delivery O2 Flow Rate FiO2 02/28/18 23:59 Room Air 02/28/18 23:05 36.8 65 16 118/74 (89) 96 Room Air 02/28/18 21:00 36.6 76 16 134/88 96 Room Air Physical Exam: General Appearance: WD/WN, no apparent distress ENT: normal ENT inspection, hearing grossly normal Neck: supple, no adenopathy Respiratory/Chest: no respiratory distress, no accessory muscle use Cardiovascular: no JVD Gastrointestinal: Abdomen: normal abdomen Bladder: normal bladder Renal: normal renal Hernia: absent hernia Liver: normal liver Spleen: normal spleen Extremities: non-tender Neurologic/Psychiatric: alert, oriented x 3 Skin: normal color Assessment & Plan Assessment & Plan A/P 42-year-old female with a 6 mm right ureteral stone. Findings reviewed with patient at length. Options including trial of stone passage with oral pain medication, acute stent placement and outpatient intervention such as lithotripsy are reviewed. Patient is very hesitant to have a stent placed as her mother has had one previously developed numerous complications associated with the stent which was left in place for several months time. She wishes to try to be discharged home on oral pain medication with a plan for outpatient lithotripsy. She understands the risk of recurrent acute ureteral colic and that if this takes place acute stent placement would be the plan. Patient agrees. We will advance her diet for today and provide a prescription for oral Percocet for her to try while as an inpatient. Would discharge her home with a prescription for the same this afternoon if she tolerates it well. We will arrange for outpatient ESWL if she tolerates this treatment well. The need for further follow-up for her other renal stones is also reviewed. Will discuss stone prevention strategies as outpatient. Should the patient's pain be uncontrolled on oral medication as an inpatient, would replace her n.p.o. after midnight for possible intervention with stent tomorrow. Thank you for allowing us to participate in this patient's acute care. Please contact our service with any questions or concerns.
[2018-03-01] MEDS ORDERED: OXYCODONE/ACETAMINOPHEN 7.5-325 TAB PO PRN ×2 (08:15)
[2018-03-01 08:22] VITALS: BP 125/76; PULSE 62; TEMP 36.7; O2SAT 96
[2018-03-01] MEDS: CIPROFLOXACIN / D5W 400 MG in PREMIXED IN D5W 200 ML IV SCH (08:28)
--- NOTE | 2018-03-01 09:00 | DIAGNOSTIC IMAGING REPORT ---
CHEST 2 VIEWS ROUTINE HISTORY: Stone, preop COMPARISON: Chest 07/26/2017. FINDINGS: The lungs are clear. Cardiac silhouette is normal in size. No pleural effusions. No pneumothorax. IMPRESSION: No acute process. Electronically signed by: Luis Miguel Kiran M.D. 03/01/2018 8:59 AM Dictated Date/Time: 03/01/2018 8:58 AM
--- NOTE | 2018-03-01 09:02 | DIAGNOSTIC IMAGING REPORT ---
KUB HISTORY: Stone disease COMPARISON: Abdomen and pelvis CT 02/28/2018. FINDINGS: The bowel gas pattern is unremarkable. There are no dilated loops of small bowel to suggest an obstruction. There are few punctate bilateral renal calculi. Prior cholecystectomy. The right ureteral stone seen on the prior CT is not clearly identified in likely obscured by overlying bowel gas. No pneumoperitoneum or pneumatosis. IMPRESSION: 1. Bilateral nephrolithiasis. 2. The right ureteral stone seen on the prior study is not clearly identified by this modality and may be obscured by overlying bowel gas. Electronically signed by: Luis Miguel Kiran M.D. 03/01/2018 9:01 AM Dictated Date/Time: 03/01/2018 8:59 AM
--- NOTE | 2018-03-01 12:51 | Progress Note ---
Medicine Progress Note Date & Time of Visit: March 01, 2018 at 12:26. Subjective Pt was seen and examined Sitting in bed with no distress with family as bedside Pt said that she feels fine She saw urology this morning and recommended stent placement for the kidney stone Pt refused stent placement due to her mother had complications with stent She said that her pain is well controlled now She would like to go home if pain is under controlled with oral pain med Plan to follow with urology for lithotripsy. Denies any chest pain, palpitation, fever and SOB Objective Last 8 Hrs Date Time Temp Pulse Resp B/P (MAP) Pulse Ox O2 Delivery O2 Flow Rate FiO2 03/01/18 08:22 36.7 62 18 125/76 (92) 96 Room Air 03/01/18 08:00 Room Air Physical Exam: General- No acute distress Head- atraumatic Eyes- PERRL, EOMI ENT- oropharynx clear Neck- supple, no JVD Lungs- clear to auscultation Heart- regular rhythm; no murmur Abdomen- normal bowel sounds, soft Extremities-no calf tenderness Neuro- alert, oriented x 3; PERRL, EOMI; no facial palsy Skin- warm & dry Laboratory Results: Last 24 Hours Test 02/28/18 17:15 02/28/18 17:35 03/01/18 06:29 Urine Color DK YELLOW Urine Appearance CLOUDY Urine pH 5.0 Urine Specific [place] 1.026 Urine Protein 1+ Urine Glucose (UA) NEG Urine Ketones TRACE Urine Occult Blood 3+ Urine Nitrite NEG Urine Bilirubin NEG Urine Urobilinogen NEG Urine Leukocyte Esterase SMALL Urine WBC (Auto) 10-30 /hpf Urine RBC (Auto) >30 /hpf Urine Hyaline Casts (Auto) 5-10 /lpf Urine Epithelial Cells (Auto) 20-30 /lpf Urine Bacteria (Auto) NEG Urine Crystals CALCIUM OXALATE Urine Test NEG White Blood Count 12.53 K/uL 8.18 K/uL Red Blood Count 4.70 M/uL 4.33 M/uL Hemoglobin 12.9 g/dL 11.8 g/dL Hematocrit 39.3 % 36.8 % Mean Corpuscular Volume 83.6 fL 85.0 fL Mean Corpuscular Hemoglobin 27.4 pg 27.3 pg Mean Corpuscular Hemoglobin Concent 32.8 g/dl 32.1 g/dl Platelet Count 334 K/uL 268 K/uL Mean Platelet Volume 9.3 fL 9.1 fL Neutrophils (%) (Auto) 79.2 % Lymphocytes (%) (Auto) 13.2 % Monocytes (%) (Auto) 6.7 % Eosinophils (%) (Auto) 0.5 % Basophils (%) (Auto) 0.2 % Neutrophils # (Auto) 9.93 K/uL Lymphocytes # (Auto) 1.65 K/uL Monocytes # (Auto) 0.84 K/uL Eosinophils # (Auto) 0.06 K/uL Basophils # (Auto) 0.02 K/uL RDW Standard Deviation 44.9 fL 46.8 fL RDW Coefficient of Variation 14.6 % 15.0 % Immature Granulocyte % (Auto) 0.2 % Immature Granulocyte # (Auto) 0.03 K/uL Prothrombin Time 10.0 SECONDS Prothromb Time International Ratio 1.0 Activated Partial Thromboplast Time 25.4 SECONDS Partial Thromboplastin Ratio 1.0 Sodium Level 140 mmol/L 142 mmol/L Potassium Level 3.5 mmol/L 3.6 mmol/L Chloride Level 108 mmol/L 112 mmol/L Carbon Dioxide Level 26 mmol/L 25 mmol/L Anion Gap 6.0 mmol/L 5.0 mmol/L Blood Urea Nitrogen 15 mg/dl 14 mg/dl Creatinine 1.03 mg/dl 0.78 mg/dl Est Creatinine Clear Calc Drug Dose 79.8 ml/min 105.3 ml/min Estimated GFR () 77.1 107.9 Estimated GFR (Non- 66.5 93.1 BUN/Creatinine Ratio 14.3 17.3 Random Glucose 113 mg/dl 78 mg/dl Calcium Level 9.1 mg/dl 8.2 mg/dl Total Bilirubin 0.3 mg/dl Aspartate Amino Transf (AST/SGOT) 17 U/L Alanine Aminotransferase (ALT/SGPT) 23 U/L Alkaline Phosphatase 99 U/L Total Protein 8.6 gm/dl Albumin 3.9 gm/dl Globulin 4.7 gm/dl Albumin/Globulin Ratio 0.8 Lipase 111 U/L Date/Time Source Procedure Growth Status 02/28/18 17:15 Urine , Clean Catch Urine Culture - Preliminary PIN-POINT GROWTH PRESENT, REINCUBATING. Resulted Assessment & Plan This is a 42 year old female with a past medical history of depression, previous history of hyperparathyroidism s/p partial parathyroid resection - presents with R flank pain, nausea/vomiting, chills. R Ureteral Calculus with Hydronephrosis Right Flank Pain CT abd/pelvis showed 6 mm x 5 mm proximal right ureteral calculus which results in mild right hydronephrosis. Continue IVF Pain is well controlled with oral pain med Urology on board Discussed stent placement with patient Pt refused stent placement for now Ok by urology to discharge home today if pain is well controlled Will follow with urology next week for lithotripsy procedure Will continue conservative management for now, but pt agreed if pain reoccurs that she will stay for tonight for stent placement is am Continue IVF Abnormal UA UA +small leukocytes Urine cx growth pinpoint grow Denies any urinary symptoms for UTI On Cipro IV for now Will not discharge on abx Depression Continue Trintellix at night FULL CODE Disposition Follow up with primary care Dr. Garcia on 03/06 @ 10:25 AM Current Inpatient Medications: Current Inpatient Medications Medications (Trade) Dose Ordered Sig/[place] Route Start Time Stop Time Status Last Admin Dose Admin Acetaminophen (Tylenol Tab) 650 mg Q4H PRN PO 02/28/18 19:45 03/30/18 19:44 Al Hydrox/Mg Hydrox/Simethicone (Maalox Max Susp) 15 ml Q4H PRN PO 02/28/18 19:45 03/30/18 19:44 Magnesium Hydroxide (Milk Of Magnesia Susp) 30 ml Q6H PRN PO 02/28/18 19:45 03/30/18 19:44 Ondansetron HCl (Zofran Inj) 4 mg Q6H PRN IV 02/28/18 19:45 03/30/18 19:44 03/01/18 08:34 4 MG Ciprofloxacin/ Dextrose 400 mg/ Prmx 200 ml @ 100 mls/hr Q12 IV 02/28/18 21:30 03/10/18 21:29 03/01/18 08:28 100 MLS/HR Potassium Chloride/Sodium Chloride 1,000 ml @ 150 mls/hr Q6H40M IV 02/28/18 21:30 03/30/18 21:29 03/01/18 06:38 150 MLS/HR Morphine Sulfate (MoRPHine SULFATE INJ) 2 mg Q4 PRN IV 02/28/18 19:45 03/14/18 19:44 03/01/18 02:39 2 MG Non-Formulary Medication (Non-Formulary Patient'S Own Med) 1 ea QPM PO 02/28/18 22:00 03/30/18 21:59 02/28/18 22:17 1 EA Oxycodone/ Acetaminophen (Percocet 7.5-325MG Tab) 1 tab Q4H PRN PO 03/01/18 08:15 03/15/18 08:14 03/01/18 08:32 1 TAB Oxycodone/ Acetaminophen (Percocet 7.5-325MG Tab) 2 tab Q4H PRN PO 03/01/18 08:15 03/15/18 08:14
[2018-03-01 15:12] VITALS: BP 112/72; PULSE 62; TEMP 36.8; O2SAT 96
[2018-03-01] MEDS ORDERED: ONDA4TAB10 SL (16:48)
[2018-03-01] MEDS ORDERED: TAMS0.4C38 PO (16:48)
[2018-03-01] MEDS ORDERED: OXYC-57 PO (16:48)
--- NOTE | 2018-03-01 16:56 | Discharge Instructions ---
Discharge Instructions Date of Service March 01, 2018. Admission Reason for Admission: Hydronephrosis,Kidney Stone,Uti Discharge Discharge Diagnosis / Problem: R Ureteral Calculus with Hydronephrosis, Abnormal urine Discharge Goals Goal(s): Decrease discomfort, Improve function, Improve disease control Activity Recommendations Activity Limitations: resume your previous activity (as tolerated) . Instructions / Follow-Up Instructions / Follow-Up Follow up with primary care provider Dr. Garcia ( Dr. Goss's colleague) on @ 10:25 AM Follow up with urology Dr. Koch ( please call dr. Koch's office for the appointment) Do not drive or operate any machine after taking Percocet Hold next dose of Percocet if you become drowsy and lethargy Seek medical attention if your pain is worsening Ok to take over the counter stool softener while taking Percocet if you become constipate Will contact you if your urine culture grow any bacteria Current Hospital Diet Patient's current hospital diet: Regular Diet Discharge Diet Recommended Diet: Regular Diet Pending Studies Studies pending at discharge: yes List of pending studies: urine culture Medical Emergencies . Who to Call and When: Medical Emergencies: If at any time you feel your situation is an emergency, please call 911 immediately. . Non-Emergent Contact Non-Emergency issues call your: Primary Care Provider Call Non-Emergent contact if: temperature is above 101, your pain is worsening . . "Provider Documentation" section prepared by Han Boucher. . [place] Drug Monitoring Program Search Results: patient reviewed within database
[2018-03-01 17:18] VITALS: BP 112/72; PULSE 62; TEMP 36.8; O2SAT 96
--- NOTE | 2018-03-04 13:39 | Discharge Summary ---
Discharge Summary Date of Service March 04, 2018. Discharge Summary Admission Date: February 28, 2018 at 21:12 Discharge Date: March 01, 2018 Discharge Disposition: Home Principal Diagnosis: R Ureteral Calculus with Hydronephrosis Secondary Diagnoses/Problems: Depression Abnormal UA Procedures: [~ rep ct add3]] CT OF THE ABDOMEN AND PELVIS WITHOUT CONTRAST, STONE PROTOCOL CLINICAL HISTORY: Right flank pain and vomiting. COMPARISON STUDY: Right upper quadrant ultrasound July 26, 2017. TECHNIQUE: Helical axial images of the abdomen and pelvis were obtained without IV or oral contrast according to renal stone protocol. A dose lowering technique was utilized adhering to the principles of ALARA. FINDINGS: There is mild right hydronephrosis due to a 6 mm x 5 mm proximal right ureteral catheter calculus. Numerous small bilateral intrarenal calculi that measure up to 4 mm. There may be fatty infiltration of the liver. There is no biliary ductal dilatation status post cholecystectomy. Evaluation of the abdomen and pelvis is suboptimal on this unenhanced exam. The spleen, adrenal glands and pancreas are unremarkable. Caliber and wall thickness of small and large bowel are normal. The appendix is normal. There is no lymphadenopathy. There are no suspicious osseous lesions. IMPRESSION: 1. 6 mm x 5 mm proximal right ureteral calculus which results in mild right hydronephrosis. 2. Bilateral nephrolithiasis. Electronically signed by: Mykel Monge M.D. 02/28/2018 6:33 PM Dictated Date/Time: 02/28/2018 6:19 PM [~ rep ct add3]] KUB HISTORY: Stone disease COMPARISON: Abdomen and pelvis CT 02/28/2018. FINDINGS: The bowel gas pattern is unremarkable. There are no dilated loops of small bowel to suggest an obstruction. There are few punctate bilateral renal calculi. Prior cholecystectomy. The right ureteral stone seen on the prior CT is not clearly identified in likely obscured by overlying bowel gas. No pneumoperitoneum or pneumatosis. IMPRESSION: 1. Bilateral nephrolithiasis. 2. The right ureteral stone seen on the prior study is not clearly identified by this modality and may be obscured by overlying bowel gas. Electronically signed by: Luis Miguel Kiran M.D. 03/01/2018 9:01 AM Dictated Date/Time: 03/01/2018 8:59 AM [~ rep ct add3]] CHEST 2 VIEWS ROUTINE HISTORY: Stone, preop COMPARISON: Chest 07/26/2017. FINDINGS: The lungs are clear. Cardiac silhouette is normal in size. No pleural effusions. No pneumothorax. IMPRESSION: No acute process. Electronically signed by: Luis Miguel Kiran M.D. 03/01/2018 8:59 AM Dictated Date/Time: 03/01/2018 8:58 AM Consultations: Urology Medication Reconciliation New Medications: Ondasetron Odt (Zofran Odt) 4 Mg Tab 4 MG SL Q8H for Nausea, #21 TAB Oxycodone/Acetaminophen 5MG/325MG (Percocet 5MG/325MG) Tab 1 TAB PO TID PRN for Pain, #12 TAB PAIN Tamsulosin Hcl (Flomax) 0.4 Mg Cap 0.4 MG PO DAILY for 30 Days, #30 CAP Continued Medications: Ropinirole (Requip) 0.25 Mg Tab 0.25 MG PO HS, TAB Vortioxetine HBr (Trintellix) 20 Mg Tab 20 MG PO QPM Admission Information HPI (per Admitting provider): This is a 42 year old female with a past medical history of depression, previous history of hyperparathyroidism s/p partial parathyroid resection - presents with R flank pain, nausea/vomiting, chills. States she's had this for a few days now; initially though it was the "stomach flu", but her R flank pain worsened and so she presented to the ER. Had an abdominal CT done, showing a 6mm by 5mm renal stone with R hydronephrosis. She received Zofran and Morphine with good response to pain. Feeling better now after receiving medications. 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 R Ureteral Calculus with Hydronephrosis Right Flank Pain CT abd/pelvis showed 6 mm x 5 mm proximal right ureteral calculus which results in mild right hydronephrosis. Continue IVF Pain is well controlled with oral pain med Urology on board Discussed stent placement with patient Pt refused stent placement for now Ok by urology to discharge home today if pain is well controlled Will follow with urology next week for lithotripsy procedure Will continue conservative management for now, but pt agreed if pain reoccurs that she will stay for tonight for stent placement is am Continue IVF Abnormal UA UA +small leukocytes Urine cx growth pinpoint grow Denies any urinary symptoms for UTI On Cipro IV for now Will not discharge on abx Depression Continue Trintellix at night FULL CODE Disposition Follow up with primary care Dr. Garcia on 03/06 @ 10:25 AM Total time spent on discharge = 35 minutes This includes examination of the patient, discharge planning, medication reconciliation, and communication with other providers. Discharge Instructions Discharge Instructions Date of Service March 01, 2018. Admission Reason for Admission: Hydronephrosis,Kidney Stone,Uti Discharge Discharge Diagnosis / Problem: R Ureteral Calculus with Hydronephrosis, Abnormal urine Discharge Goals Goal(s): Decrease discomfort, Improve function, Improve disease control Activity Recommendations Activity Limitations: resume your previous activity (as tolerated) . Instructions / Follow-Up Instructions / Follow-Up Follow up with primary care provider Dr. Garcia ( Dr. Goss's colleague) on @ 10:25 AM Follow up with urology Dr. Koch ( please call dr. Koch's office for the appointment) Do not drive or operate any machine after taking Percocet Hold next dose of Percocet if you become drowsy and lethargy Seek medical attention if your pain is worsening Ok to take over the counter stool softener while taking Percocet if you become constipate Will contact you if your urine culture grow any bacteria Current Hospital Diet Patient's current hospital diet: Regular Diet Discharge Diet Recommended Diet: Regular Diet Pending Studies Studies pending at discharge: yes List of pending studies: urine culture Medical Emergencies . Who to Call and When: Medical Emergencies: If at any time you feel your situation is an emergency, please call 911 immediately. . Non-Emergent Contact Non-Emergency issues call your: Primary Care Provider Call Non-Emergent contact if: temperature is above 101, your pain is worsening . . "Provider Documentation" section prepared by Han Boucher. . [place] Drug Monitoring Program Search Results: patient reviewed within database Additional Copies To Suresh Salvador M.D., William F.JR, M.D.(MARIA L
== END 2018-03-01 18:00 | disposition home or self-care (01) | DRG 694 ==
LOC: C.EDB 16:58 → ENRESERV 20:19 → C.MSN 21:12
PROVIDERS: ADMIT Family Medicine; ATTEND Internal Medicine
DX: N13.2 Hydronephrosis with renal and ureteral calculous obstruction (principal); N39.0 Urinary tract infection, site not specified; F32.9 Major depressive disorder, single episode, unspecified; Z87.440 Personal history of urinary (tract) infections; Z88.1 Allergy status to other antibiotic agents; Z87.891 Personal history of nicotine dependence; Z88.0 Allergy status to penicillin; Z90.49 Acquired absence of other specified parts of digestive tract